=== PATIENT | female | born 2000 | race Caucasian/White ===

== ENCOUNTER → 2020-05-13 09:55 | Outpatient (BNVA) | payer BC, MEDICAID, SELFPAY | PROVIDERS: Family Provider Nurse Practitioner Family; PCP Nurse Practitioner Family; Visit Provider Obstetrics & Gynecology | DX: Z34.02 Encounter for supervision of normal first pregnancy, second trimester (principal) | CPT/HCPCS: 81000; 82950; 85027 ==

== ENCOUNTER → 2020-05-19 08:17 | Outpatient (BNVA) | payer BC, MEDICAID, SELFPAY | PROVIDERS: Family Provider Nurse Practitioner Family; PCP Nurse Practitioner Family; Visit Provider Obstetrics & Gynecology | DX: R73.09 Other abnormal glucose (principal) | CPT/HCPCS: 82951; 82952 ==

== ENCOUNTER 2020-05-24 23:27 | Outpatient (CLI) | payer BC, MEDICAID, SELFPAY ==
[2020-05-24 23:50] VITALS: PULSE 116; O2SAT 100
[2020-05-24 23:51] VITALS: BP 126/84; PULSE 120; TEMP 36.9
[2020-05-24 23:55] VITALS: PULSE 106; O2SAT 99
[2020-05-25] VITALS (24 sets, daily range): BP systolic 116–127; BP diastolic 71–87; PULSE 73–115; O2SAT 97–100; BMI 25.5
[2020-05-25] MEDS: acetaminophen 325 mg Tablet 650 MG PO (00:45)
--- NOTE | 2020-05-25 06:47 | PM.ACPR ---
Procedure/Consent Procedure Narrative: NONSTRESS TEST: Place of test: [facility]D Indication: 19-year-old 1 para 0 at 30 weeks and 1 day gestation, abdominal pain and decreased movement Date and time of test: 05/25/2020, 12:30 AM Baseline: 135 Variability: Moderate Accelerations: Accelerations present Decelerations: No decelerations Tocometry: No contractions INTERPRETATION: NST reactive, continue kick counts
== END 2020-05-25 01:45 | disposition home or self-care (01) ==
LOC: OPOB 23:35 → OBGYN 05-25 01:37
PROVIDERS: Family Provider Nurse Practitioner Family; PCP Nurse Practitioner Family; Visit Provider Obstetrics & Gynecology
DX: O36.8130 Decreased fetal movements, third trimester, not applicable or unspecified (principal); Z3A.30 30 weeks gestation of pregnancy; R10.9 Unspecified abdominal pain
CPT/HCPCS: 12345; 99211

== ENCOUNTER → 2020-05-27 15:59 | Outpatient (BNVA) | payer BC, MEDICAID, SELFPAY | PROVIDERS: Family Provider Nurse Practitioner Family; PCP Nurse Practitioner Family; Visit Provider Obstetrics & Gynecology | DX: Z34.90 Encounter for supervision of normal pregnancy, unspecified, unspecified trimester (principal) | CPT/HCPCS: 81000 ==

== ENCOUNTER → 2020-06-07 15:10 | Outpatient (BNVA) | payer BC, MEDICAID, SELFPAY | PROVIDERS: Family Provider Nurse Practitioner Family; PCP Nurse Practitioner Family; Visit Provider Obstetrics & Gynecology | DX: O09.893 Supervision of other high risk pregnancies, third trimester (principal) | CPT/HCPCS: 81000; 87077; 87086; 87184 ==

== ENCOUNTER → 2020-06-25 10:54 | Outpatient (BNVA) | payer BC, MEDICAID, SELFPAY | PROVIDERS: Family Provider Nurse Practitioner Family; PCP Nurse Practitioner Family; Visit Provider Obstetrics & Gynecology | DX: O24.410 Gestational diabetes mellitus in pregnancy, diet controlled (principal); O28.3 Abnormal ultrasonic finding on antenatal screening of mother; J45.990 Exercise induced bronchospasm | CPT/HCPCS: 81000 ==

== ENCOUNTER → 2020-07-05 10:24 | Outpatient (BNVA) | payer BC, MEDICAID, SELFPAY | PROVIDERS: Family Provider Nurse Practitioner Family; PCP Nurse Practitioner Family; Visit Provider Obstetrics & Gynecology | DX: O24.410 Gestational diabetes mellitus in pregnancy, diet controlled (principal) | CPT/HCPCS: 81000 ==

== ENCOUNTER → 2020-07-08 09:43 | Outpatient (BNVA) | payer BC, MEDICAID, SELFPAY | PROVIDERS: Family Provider Nurse Practitioner Family; PCP Nurse Practitioner Family; Visit Provider Obstetrics & Gynecology | DX: O24.410 Gestational diabetes mellitus in pregnancy, diet controlled (principal) | CPT/HCPCS: 81000 ==

== ENCOUNTER → 2020-07-12 09:19 | Outpatient (BNVA) | payer BC, MEDICAID, SELFPAY | PROVIDERS: Family Provider Nurse Practitioner Family; PCP Nurse Practitioner Family; Visit Provider Obstetrics & Gynecology | DX: O24.410 Gestational diabetes mellitus in pregnancy, diet controlled (principal) | CPT/HCPCS: 81000 ==

== ENCOUNTER 2020-12-07 10:24 | Day surgery (SDC) | payer BC, MEDICAID, SELFPAY ==
[2020-12-07] VITALS (11 sets, daily range): BP systolic 113–139; BP diastolic 60–89; PULSE 57–98; RESP 16–25; TEMP 36.3–37.2; O2SAT 94–100; BMI 22.4
--- NOTE | 2020-12-07 13:02 | W.ED.ABDPA2 ---
HPI - Abdominal Pain General: Chief Complaint: Abdominal Pain Stated Complaint: ABD Cramps N/V Time Seen by Provider: 12/07/20 12:59 History of Present Illness: HPI narrative: 19-year-old female presents to the emergency room complaint of abdominal pain. Woke her from sleep around 4 AM today she is took some Tylenol at back to sleep, she awoke and it was a little worse than it was initially. Localized pain to the right lower quadrant. She has had some nausea and vomiting but no diarrhea denies any hematemesis coffee-ground emesis no dysuria urgency or frequency. Earlier this year she was and had a . No other abdominal surgeries. MD elicited complaint: abdominal pain Onset (ago): hour(s) Pain Consistency: intermittent Location: RLQ Quality: cramping Radiation: none Exacerbating factors: movement Relieving factors: nothing Associated Symptoms: Reports GI cramping, nausea and poor appetite; Denies anorexia, belching, bloating, change in bowel habits, change in stool character, chills, coffee ground emesis, constipation, diarrhea, dyspepsia, dysuria, excessive flatus, fever(s), heartburn, hematochezia, hematuria, hematemesis, fecal incontinence, loose stools, melena, syncope and vomiting Related Data: Date of Last Menstrual Period: 11/16/20 Review of Systems Const: Denies: fever(s) or chills ENMT: Denies: throat pain, ear or mastoid pain, nasal discharge or nasal congestion Card: Denies: syncope Resp: Denies: dyspnea, productive cough or non-productive cough GI: Reports: nausea and GI cramping; Denies: vomiting, hematemesis, coffee ground emesis, heartburn, diarrhea, constipation, bloating, belching, excessive flatus, fecal incontinence, change in bowel habits, change in stool character, hematochezia or melena : Denies: dysuria or hematuria Skin/Breast: Denies: rash or pruritus PFSH ED PFSH: Medical History Exercise-induced asthma History of gestational diabetes Had GDM with first . Surgical History (Updated 12/07/20 @ 16:25 by Zach Orona MD) S/P primary low transverse (07/21/20) x 1 Dx: NR FHT. Performed at [facility] in [place], [place]. confirmed LTCS with 2 layer closure. Family History Grandfather Hypertension Maternal Mother Lupus Brother Epilepsy Social History Smoking and tobacco status: never smoked Alcohol intake: never Female Reproductive History: Date of last menstrual period: 11/16/20 Physical Exam Const: COMMON NORMALS: no acute distress GENERAL APPEARANCE: cooperative and comfortable ORIENTATION/CONSCIOUSNESS: Yes awake, Yes oriented to person, Yes oriented to place and Yes oriented to time HENMT: COMMON NORMALS: normocephalic, atraumatic and hearing grossly normal bilaterally HEAD & SCALP: normocephalic and atraumatic Neck/C-Spine: COMMON NORMALS: no JVD Resp: COMMON NORMALS: normal respiratory effort, No retractions, No use of accessory muscles and clear to auscultation bilaterally AUSCULTATION: clear to auscultation bilaterally Cardio: COMMON NORMALS: no JVD, regular rate, regular rhythm and No murmurs present (Cardio) RATE: regular rate RHYTHM: regular rhythm GI: COMMON NORMALS: No hepatosplenomegaly present AUSCULTATION: Yes normoactive bowel sounds PALPATION: Yes Tenderness to palpation present (GI) Details: RLQ, No Guarding due to palpation present (GI) and Yes No hepatosplenomegaly present Extremity: COMMON NORMALS: normal to inspection, capillary refill normal, no clubbing, cyanosis or edema, no calf tenderness and no pedal edema Neuro: SENSORIUM/ORIENTATION: Yes oriented to person, Yes oriented to place and Yes oriented to time Skin: COMMON NORMALS: no rashes or lesions noted GENERAL SKIN EXAM: no rashes or lesions noted Course Vital Signs: Vital signs: Vital Signs Temperature 97.7 F 12/07/20 20:45 Pulse Rate 64 12/07/20 20:47 Respiratory Rate 18 12/07/20 20:47 Blood Pressure 134/85 12/07/20 20:47 Pulse Oximetry 94 12/07/20 20:47 MDM - Abdominal Pain MDM Narrative: Medical decision making narrative: CT shows acute appendicitis. Discussed Dr. jefferson take patient directly to surgery. Lab Data: Labs: Lab Results 12/07/20 12/07/20 12/07/20 Range/Units 13:05 13:05 13:05 WBC 15.5 H (4.5-13.0) 10^3/ uL RBC 4.87 (4.1-5.3) 10^6/u L Hgb 12.9 (11.5-15.3) g/dL Hct 40.3 (37.0-47.0) % MCV 82.8 (81-99) fL MCH 26.5 L (28.0-34.0) pg MCHC 32.0 (30.0-36.0) g/dL RDW 13.3 (12.1-15.1) % Plt Count 308 (130-400) 10^3/c mm MPV 9.8 (7.4-10.4) fL Neut % (Auto) 86.4 % Lymph % (Auto) 8.9 % [place] % (Auto) 4.0 % Eos % (Auto) 0.1 % Baso % (Auto) 0.3 % Neut # (Auto) 13.37 H (1.8-8.0) 10^3/u L Lymph # (Auto) 1.4 L (1.5-6.5) 10^3/u L [place] # (Auto) 0.6 (0.2-0.9) 10^3/u L Eos # (Auto) 0.0 (0.0-0.8) 10^3/u L Baso # (Auto) 0.0 (0.0-0.1) 10^3/u L Nucleated RBC % (a uto) 0 % Nucleated RBCs # 0.0 /100WBC Sodium 138 (136-145) mmol/L Potassium 4.5 (3.5-5.1) mmol/L Chloride 103 (98-107) mmol/L Carbon Dioxide 23 (22-29) mmol/L Anion Gap 16.5 (5-19) BUN 10 (6-20) mg/dL Creatinine 0.8 (0.5-0.9) mg/dL GFR Calculation 92.4 (90-130) mL/min Glucose 92 (65-115) mg/dL Calculated Osmolal ity 285 (285-295) mOsm/k g Calcium 9.4 (8.5-10.5) mg/dL Total Bilirubin 0.3 (0.15-1.2) mg/dL AST 19 (0-32) U/L ALT 12 (0-33) U/L Alkaline Phosphata se 130 H (35-105) IU/L Total Protein 7.3 (6.6-8.7) g/dL Albumin 4.4 (3.5-5.2) g/dL Globulin 2.9 (1.3-4.6) g/dL Lipase 31 (13-60) U/L HCG, Qual Negative (Negative) Urine Color (Yellow) Urine Appearance (CLEAR) Urine pH (5-7) Ur Specific Gravit y (1.005-1.030) Urine Protein (Negative) Urine Glucose (UA) (Normal) Urine Ketones (Negative) Urine Blood (Negative) Urine Nitrate (Negative) Urine Bilirubin (Negative) Urine Urobilinogen (Negative) mg/dL Ur Leukocyte [place]esh[place] ase (Negative) Urine RBC (0-2) /hpf Urine WBC (0-5) /hpf Ur Squamous Epith Cells (0-5) /hpf Amorphous Sediment Urine Bacteria (NONE) /hpf 12/07/20 Range/Units 13:05 WBC (4.5-13.0) 10^3/ uL RBC (4.1-5.3) 10^6/u L Hgb (11.5-15.3) g/dL Hct (37.0-47.0) % MCV (81-99) fL MCH (28.0-34.0) pg MCHC (30.0-36.0) g/dL RDW (12.1-15.1) % Plt Count (130-400) 10^3/c mm MPV (7.4-10.4) fL Neut % (Auto) % Lymph % (Auto) % [place] % (Auto) % Eos % (Auto) % Baso % (Auto) % Neut # (Auto) (1.8-8.0) 10^3/u L Lymph # (Auto) (1.5-6.5) 10^3/u L [place] # (Auto) (0.2-0.9) 10^3/u L Eos # (Auto) (0.0-0.8) 10^3/u L Baso # (Auto) (0.0-0.1) 10^3/u L Nucleated RBC % (a uto) % Nucleated RBCs # /100WBC Sodium (136-145) mmol/L Potassium (3.5-5.1) mmol/L Chloride (98-107) mmol/L Carbon Dioxide (22-29) mmol/L Anion Gap (5-19) BUN (6-20) mg/dL Creatinine (0.5-0.9) mg/dL GFR Calculation (90-130) mL/min Glucose (65-115) mg/dL Calculated Osmolal ity (285-295) mOsm/k g Calcium (8.5-10.5) mg/dL Total Bilirubin (0.15-1.2) mg/dL AST (0-32) U/L ALT (0-33) U/L Alkaline Phosphata se (35-105) IU/L Total Protein (6.6-8.7) g/dL Albumin (3.5-5.2) g/dL Globulin (1.3-4.6) g/dL Lipase (13-60) U/L HCG, Qual (Negative) Urine Color Yellow (Yellow) Urine Appearance Hazy A (CLEAR) Urine pH 5 (5-7) Ur Specific Gravit y 1.020 (1.005-1.030) Urine Protein Neg (Negative) Urine Glucose (UA) Norm (Normal) Urine Ketones Negative (Negative) Urine Blood Neg (Negative) Urine Nitrate Negative (Negative) Urine Bilirubin Neg (Negative) Urine Urobilinogen Norm (Negative) mg/dL Ur Leukocyte [place] ase Negative (Negative) Urine RBC 5-10 H (0-2) /hpf Urine WBC 0-4 H (0-5) /hpf Ur Squamous Epith Cells 15-25 H (0-5) /hpf Amorphous Sediment Not Reportable Urine Bacteria 4+ H (NONE) /hpf Discharge Plan Discharge Patient Disposition: Admitted As Inpatient Clinical Impression: Acute appendicitis Condition: Stable Discharge Diet: Advance as tolerated Discharge Activity: Limit activity as instructed Coding Level of Care Code ED Tangled Yarn Worker for Amanuel Fwd Exam Comprehensive
--- NOTE | 2020-12-07 13:11 | CT_ITS ---
WS: [id number] CT ABDOMEN AND PELVIS WITH CONTRAST HISTORY: General abdominal pain with nausea and vomiting. TECHNIQUE: Imaging performed of the abdomen and pelvis with IV contrast. Single phase imaging of the abdomen. Coronal and sagittal reformats are submitted. All CT scans at [facility] use at least one of these dose optimization techniques: automated exposure control; mA and/or kV adjustment per patient size (includes targeted exams where dose is matched to clinical indication); or iterativ e reconstruction. IV CONTRAST: Omnipaque 300; 75 mL IV. Oral contrast: No DLP: 798.25 mGy.cm COMPARISON: None available. Lower thorax: Lung bases are clear. Heart is normal size. No hiatal hernia. Liver/biliary system: Normal size with no intrahepatic dilatation. Gallbladder: Normal. No gallstones or wall thickening. No pericholecystic fluid. Pancreas: Normal size pancreas and pancreatic duct. No adjacent inflammation. Spleen: Normal size spleen. No mass or infarct. Adrenal glands: Normal. Right kidney: Normal. Left kidney: Normal. Aorta: Normal. Lymphadenopathy: None. Free fluid: Small to moderate amount of free fluid in the cul-de-sac. Slightly more than physiologic. GI tract: There is a dilated elongated fluid-filled blind-ending loop extends across the midline of t he pelvis from the RIGHT lower quadrant measuring 8 mm. Highly suspicious for an abnormal appendix. M ild enhancement of the wall. No additional appendix is identified. Abdominal wall: Unremarkable abdominal wall. No hernia. Pelvis: Free fluid in the pelvis. Uterus is retroverted. Small amount of fluid along the endometrial canal. There is also some very mild inflammatory changes in the pelvis. Ovaries contain small follicl es. Bones: Unremarkable. CT/CT abdomen pelvis w con* [id number] IMPRESSION: 1. Dilated blind-ending loop extending across the midline of the pelvis highly suspicious for appendicitis. 2. Small amount of free fluid in the pelvis is slightly more than physiologic.
[2020-12-07 13:17] LABS: Basophils % 0.3 %; Eosinophils % 0.1 %; Hematocrit 40.3 % (37.0-47.0); Hemoglobin 12.9 g/dL (11.5-15.3); Lymphocytes # 1.4 10^3/uL (1.5-6.5); Lymphocytes % 8.9 %; Mean Corpuscular Hemoglobin 26.5 pg (28.0-34.0); Mean Corpuscular Volume 82.8 fL (81-99); Mean Platelet Volume 9.8 fL (7.4-10.4); Monocytes # 0.6 10^3/uL (0.2-0.9); Neutrophils # 13.37 10^3/uL (1.8-8.0); Neutrophils % 86.4 %; Nucleated Red Blood Cells % 0 %; Platelet Count 308 10^3/cmm (130-400); Red Blood Count 4.87 10^6/uL (4.1-5.3); Red Cell Distribution Width 13.3 % (12.1-15.1); White Blood Count 15.5 10^3/uL (4.5-13.0)
[2020-12-07 13:31] LABS: HCG, Serum Qual Negative (Negative)
[2020-12-07 13:37] LABS: Alanine Aminotransferase 12 U/L (0-33); Albumin Level 4.4 g/dL (3.5-5.2); Alkaline Phosphatase 130 IU/L (35-105); Anion Gap 16.5 (5-19); Aspartate Amino Transferase 19 U/L (0-32); Blood Urea Nitrogen 10 mg/dL (6-20); Calcium 9.4 mg/dL (8.5-10.5); Carbon Dioxide 23 mmol/L (22-29); Chloride 103 mmol/L (98-107); Globulin 2.9 g/dL (1.3-4.6); Glomerular Filtration Rate 92.4 mL/min (90-130); Glucose 92 mg/dL (65-115); Lipase 31 U/L (13-60); Osmolality Calculated 285 mOsm/kg (285-295); Potassium 4.5 mmol/L (3.5-5.1); Sodium 138 mmol/L (136-145); Total Bilirubin 0.3 mg/dL (0.15-1.2); Total Protein 7.3 g/dL (6.6-8.7)
[2020-12-07] MEDS: iohexol 300 mg/mL 100 mL Btl IV (13:41)
[2020-12-07 14:16] LABS: Bilirubin Urine Neg (Negative); Blood Urine Neg (Negative); Glucose Urine UA Norm (Normal); Ketones Urine Negative (Negative); Leukocyte Esterase Urine Negative (Negative); Nitrate Urine Negative (Negative); Protein Urine Neg (Negative); Urine Appearance Hazy (CLEAR); Urine Color Yellow (Yellow); Urobilinogen Urine Norm (Negative); pH Urine 5 (5-7)
[2020-12-07 14:17] LABS: Squamous Epithelial Cell Urine 15-25 /hpf (0-5); WBC Urine 0-4 /hpf (0-5)
[2020-12-07 14:18] LABS: Add Urine Culture? No
[2020-12-07 14:19] LABS: Bacteria Urine 4+ /hpf
--- NOTE | 2020-12-07 14:46 | ANES.PREANE2 ---
Pre-Anesthetic Assessment Pre-Anesthetic Assessment: Height/Weight: Height 1.52 m Weight 52.163 kg Temp Pulse Resp BP Pulse Ox 98.0 F 57 L 18 120/60 100 12/07/20 11:56 12/07/20 13:32 12/07/20 14:02 12/07/20 14:02 12/07/20 14:02 Preop Diagnosis: appendicitis Proposed Procedure: appendectomy Familial anesthetic complications: Mother's heart stopped after losing 2 L blood and getting morphine during back surgery Was Beta Jackeline taken within 24 hours: N/A Was Clonidine taken within 24 hours: N/A Last intake: . 8 hrs Social: Social History: No alcohol and No tobacco Exam: Pre-Anes Outpt Exam: alert, oriented x 3, clear to auscultation bilaterally and regular rate & rhythm Airway: Cervical ROM: WNL MP: 1 Dentition: Chipped Anesthetic Plan: ASA status: 1 Anesthesia: General Risk of > 500 ml blood loss (7ml/kg in children): No PFSH Anesthesia PFSH: Medical History Exercise-induced asthma History of gestational diabetes Had GDM with first . Surgical History S/P primary low transverse (07/21/20) Dx: NR FHT. Performed at [facility] in [place], [place]. confirmed LTCS with 2 layer closure. Family History Grandfather Hypertension Maternal Mother Lupus Brother Epilepsy Social History Smoking and tobacco status: never smoked Alcohol intake: never Female Reproductive History: Date of last menstrual period: 11/16/20 Data Anesthesia CBC & Chem 7: 12/07/20 13:05 12/07/20 13:05 Other Labs: Laboratory Results - last 48 hr 12/07/20 12/07/20 12/07/20 13:05 13:05 13:05 WBC 15.5 H RBC 4.87 Hgb 12.9 Hct 40.3 MCV 82.8 MCH 26.5 L MCHC 32.0 RDW 13.3 Plt Count 308 MPV 9.8 Neut % (Auto) 86.4 Lymph % (Auto) 8.9 [place] % (Auto) 4.0 Eos % (Auto) 0.1 Baso % (Auto) 0.3 Neut # (Auto) 13.37 H Lymph # (Auto) 1.4 L [place] # (Auto) 0.6 Eos # (Auto) 0.0 Baso # (Auto) 0.0 Nucleated RBC % (auto) 0 Nucleated RBCs # 0.0 Sodium 138 Potassium 4.5 Chloride 103 Carbon Dioxide 23 Anion Gap 16.5 BUN 10 Creatinine 0.8 GFR Calculation 92.4 Glucose 92 Calculated Osmolality 285 Calcium 9.4 Total Bilirubin 0.3 AST 19 ALT 12 Alkaline Phosphatase 130 H Total Protein 7.3 Albumin 4.4 Globulin 2.9 Lipase 31 HCG, Qual Negative Urine Color Urine Appearance Urine pH Ur Specific [place] Urine Protein Urine Glucose (UA) Urine Ketones Urine Blood Urine Nitrate Urine Bilirubin Urine Urobilinogen Ur Leukocyte Esterase Urine RBC Urine WBC Ur Squamous Epith Cells Amorphous Sediment Urine Bacteria 12/07/20 13:05 WBC RBC Hgb Hct MCV MCH MCHC RDW Plt Count MPV Neut % (Auto) Lymph % (Auto) [place] % (Auto) Eos % (Auto) Baso % (Auto) Neut # (Auto) Lymph # (Auto) [place] # (Auto) Eos # (Auto) Baso # (Auto) Nucleated RBC % (auto) Nucleated RBCs # Sodium Potassium Chloride Carbon Dioxide Anion Gap BUN Creatinine GFR Calculation Glucose Calculated Osmolality Calcium Total Bilirubin AST ALT Alkaline Phosphatase Total Protein Albumin Globulin Lipase HCG, Qual Urine Color Yellow Urine Appearance Hazy A Urine pH 5 Ur Specific [place] 1.020 Urine Protein Neg Urine Glucose (UA) Norm Urine Ketones Negative Urine Blood Neg Urine Nitrate Negative Urine Bilirubin Neg Urine Urobilinogen Norm Ur Leukocyte Esterase Negative Urine RBC 5-10 H Urine WBC 0-4 H Ur Squamous Epith Cells 15-25 H Amorphous Sediment Not Reportable Urine Bacteria 4+ H Cardiac Studies: No Data to Display
--- NOTE | 2020-12-07 16:23 | PM.HP ---
Providers/Chief Complaint Admitting Physician: General Surgery Zach Orona MD Primary Care Provider: Mirta House Chief Complaint: ABD Cramps N/V History of Present Illness Laura Edwards is a 19 year old female who says she awoke around 4 AM this morning with some lower abdominal pain. It got bad enough that she became somewhat dizzy and felt like she was going to pass out at one point in time due to the pain. Over the course of the day, the pain has moved and become a little bit more noticeable in the right lower quadrant. She has not had any fevers or chills but did develop some nausea and vomited once. She ended up coming to the emergency department where a CAT scan showed changes very suspicious for acute appendicitis. Review of Systems General: Reports: 10 or more systems reviewed and unremarkable except in HPI and below Const: Denies: fever(s) GI: Reports: abdominal pain, nausea and vomiting; Denies: change in bowel habits Medications/Allergies Home Medications Medication Instructions Recorded Confirmed Last Taken Type prenat.vits,yuliana,yxs-rvea-breuz 1 tab PO DAILY 04/07/20 08/30/20 Unknown History ferrous sulfate 325 mg (65 mg 325 mg PO DAILY #30 tab 05/18/20 08/30/20 Unknown Rx iron) tablet norethindrone (contraceptive) 0.35 0.35 mg PO DAILY #28 tab 08/30/20 08/30/20 Unknown Rx mg tablet Allergies Allergy/AdvReac Type Severity Reaction Status Date / Time clindamycin Allergy Rash Verified 08/30/20 10:05 sulfamethoxazole Allergy Rash Verified 08/30/20 10:05 [From Bactrim] trimethoprim [From Bactrim] Allergy Rash Verified 08/30/20 10:05 PFSH Acute PFSH: Medical History Exercise-induced asthma History of gestational diabetes Had GDM with first . Surgical History (Updated 12/07/20 @ 16:25 by Zach Orona MD) S/P primary low transverse (07/21/20) x 1 Dx: NR FHT. Performed at [facility] in [place], [place]. confirmed LTCS with 2 layer closure. Family History Grandfather Hypertension Maternal Mother Lupus Brother Epilepsy Social History Smoking and tobacco status: never smoked Alcohol intake: never Female Reproductive History: Date of last menstrual period: 11/16/20 Vitals/I&O/Wt Last Vital Signs Temp 98.9 F 12/07/20 16:06 Pulse 62 12/07/20 16:06 Resp 18 12/07/20 16:06 BP 113/73 12/07/20 16:06 Pulse Ox 98 12/07/20 16:06 Weight last 48 hrs Weight 115 lb Physical Exam Narrative: EXAM NARRATIVE: The patient was encountered in her room in the outpatient surgery department after being moved from the emergency department. She does not appear to be in any distress. The pupils are equal. No carotid bruits are heard. The lungs are clear. The heart is regular. The abdomen reveals some bowel sounds and is soft but the patient does have her maximum point of tenderness over McBurney's point in the right lower quadrant with positive percussion tenderness. Rovsing's sign is equivocal. No obvious masses are palpated. The extremities reveal no edema. Neurologically the patient is grossly intact. Data : 12/07/20 13:05 12/07/20 13:05 CT Abd/Pel: Radiologist's impression: CT abdomen/pelvis 12/07/2020 IMPRESSION: 1. Dilated blind-ending loop extending across the midline of the pelvis highly suspicious for appendicitis. 2. Small amount of free fluid in the pelvis is slightly more than physiologic. A&P Assessment and plan (1) Acute appendicitis: The patient's exam is very consistent with acute appendicitis. I agree with the findings on the CAT scan; it is difficult to know if what we are seeing is the appendix with any certainty, but it appears to end blindly on the left side of the pelvis and travels over to near the base of the cecum on the right side. I discussed treatment of appendicitis with the patient in detail. We discussed both medical and surgical methods of management. Surgical risks including bleeding, infection, internal organ injury, etc. were all gone over. We also discussed laparoscopic and open techniques of surgery. The patient seems to understand and would like to proceed with an appendectomy today. She has not had anything solid to eat since last night. Status: Acute Attestations Medical Necessity Statement*: The patient may go home after surgery today if there are no contraindications. For that reason, she will be left in outpatient status for now. Coding Level of Care Code Acute Lubricating Engineer for Amanuel Montez Diagnoses Acute appendicitis K35.80
[2020-12-07] MEDS: lactated ringers 1,000 ML 100 ML IV (17:30)
[2020-12-07] MEDS: metroNIDAZOLE IV 250 MG in empty flexible container 1 EACH 50 MG IV (19:45)
--- NOTE | 2020-12-07 20:15 | P.OP_ITS ---
Operative Report Date of procedure: December 07, 2020 Pre-op Diagnosis: Acute appendicitis. Post-op diagnosis: same Procedure Done: Laparoscopic appendectomy. Specimens removed/disposition: Appendix. Surgeon: Zach Orona Anesthesia: General Estimated blood loss (mL): 2 Complications: None. Condition: stable Disposition: PACU Procedure: The patient was brought to the Operating Room and was placed in a supine position on the operating room table. General endotracheal anesthesia was induced. The abdomen was prepped and draped in a sterile fashion. A small vertical incision was carried out in the inferior aspect of the umbilicus. Blunt dissection was carried out down to the fascia, which was grasped with a Jaqueline clamp. A stay suture of 0 Vicryl was placed on either side of the midline and the midline fascia was incised. The underlying peritoneum was opened bluntly and the Sherie port was placed directly into the peritoneal cavity and was held in place with the inflatable balloon. The peritoneal cavity was insufflated with carbon dioxide. The laparoscope was used to inspect the peritoneal cavity. No gross abnormalities were initially noted other than a small omental adhesion to the lower midline which was eventually taken down. Two 5-millimeter ports were placed in the left lower quadrant under direct vision. The patient was tilted in a Trendelenburg position and slightly to the left side. A laparoscopic [employer] was used to elevate the cecum and the appendix was identified. The appendix was somewhat dilated and had some injected blood vessels on its surface. The mesoappendix was edematous. No evidence of perforation was present. The appendix was then elevated. The mesoappendix was divided using cautery to maintain hemostasis at the base of the appendix. The base of the appendix appeared healthy and was divided using an endoscopic stapler. The appendix was removed from the peritoneal cavity after being placed in a laparoscopic bag. The right lower quadrant and pelvis were irrigated. The staple line on the cecum was identified and appeared to be in good condition. The Sherie port was removed from the umbilical site and the stay sutures of Vicryl were tied to each other at the umbilicus. An additional [id number] suture of 0 Vicryl was placed, closing the fascial defect so that it was airtight. A final round of irrigation was carried out in the right lower quadrant and the pelvis. No ongoing problems were seen. The remaining ports were removed from the abdominal wall as the pneumoperitoneum was evacuated. All skin incisions were closed using inverted interrupted sutures of 4-0 Vicryl. Benzoin and Steri-Strips were placed over the incisions and Band- Aids followed. The patient was taken to the Recovery Room in stable condition postoperatively.
--- NOTE | 2020-12-07 21:23 | SUR.PHASEII ---
2120: patient dispensed #4 hydrocodone/apap 5/325mg to take at home for overnight. patients post op RX was sent to [facility] and they closed at 1900. patient can pickup RX 12/08. all other pharmacies in [facility] are closed at 2000.
[2020-12-07] MEDS: HYDROcodone-acetaminophen 5-325 mg Tablet 4 TAB PO (21:25)
--- NOTE | 2020-12-07 21:27 | ANE.PACU2 ---
Inpatient post-anesthesia follow up: Airway intact: Yes Vital signs: Temperature 97.7 F Pulse Rate [Monito r] 70 Pulse Rate 64 Respiratory Rate 18 Blood Pressure [Ri ght Arm] 115/69 Blood Pressure 134/85 Pulse Oximetry 94 Oxygen Delivery Me thod Room Air Oxygen Flow Rate Fraction of Inspir ed Oxygen Hydration adequate: Yes Nausea and vomiting: No Pain level: 2 Mental status: Baseline
== END 2020-12-07 21:31 | disposition home or self-care (01) ==
LOC: ER 15:11 → OPS 15:37
PROVIDERS: Physician Assistant; Emergency Provider Family Medicine; PCP Nurse Practitioner Family; Visit Provider Surgery
PROC: 0DTJ4ZZ Resection of Appendix, Percutaneous Endoscopic Approach (ICD-10-PCS; CPT 44970; principal; 2020-12-07 18:55)
DX: K35.80 Unspecified acute appendicitis (principal)
CPT/HCPCS: 44970; 74177; 80053; 81001; 83690; 84703; 85025; 88304; 96361; 96365; 96375; J0690; J1100; J2405; J2704; J2710; J3010; J3490; Q9967; S0030

== ENCOUNTER 2022-11-16 01:10 | Emergency (ER) | payer BC, MEDICAID, SELFPAY ==
[2022-11-16 01:22] VITALS: BP 133/93; PULSE 82; RESP 16; TEMP 37.4; O2SAT 99; BMI 23.4
--- NOTE | 2022-11-16 01:22 | ED_ITS ---
HPI - Extremity Injury (Lower) General: Chief Complaint: Extremity Problem,Nontraumatic Stated Complaint: left foot injury / toe Time Seen by Provider: 11/16/22 01:22 History of Present Illness: Patient comes in due to pain and tenderness to the left great toe. Patient appears nontoxic. Patient appears no acute distress. Patient reports not injuring the foot. Patient reports symptoms for the last 2 to 3 days. Review of Systems General: Reports: 10 or more systems reviewed and unremarkable except in HPI and below Musc: Reports: extremity pain and extremity swelling Skin/Breast: Reports: erythema PFSH ED PFSH: Medical History Exercise-induced asthma History of gestational diabetes Had GDM with first . Surgical History S/P primary low transverse (07/21/20) x 1 Dx: NR FHT. Performed at [facility] in [place], [place]. confirmed LTCS with 2 layer closure. Family History Grandfather Hypertension Maternal Mother Lupus Brother Epilepsy Social History Smoking and tobacco status: never smoked Alcohol intake: never Substance/Drug Use: never Physical Exam Const: COMMON NORMALS: alert HENMT: COMMON NORMALS: normocephalic HEAD & SCALP: normocephalic Neck/C-Spine: COMMON NORMALS: full ROM Resp: COMMON NORMALS: normal respiratory effort Cardio: COMMON NORMALS: regular rate RATE: regular rate Extremity: COMMON NORMALS: normal to inspection RIGHT LOWER EXTREMITY: Yes foot & digits (Redness to the medial aspect of the great toe) Neuro: SENSORIUM/ORIENTATION: Yes alert Skin: NAILS: other (Mild ingrown nail left great toe) Course Vital Signs: Vital signs: Vital Signs Temperature 99.4 F 11/16/22 01:22 Pulse Rate 82 11/16/22 01:22 Respiratory Rate 16 11/16/22 01:22 Blood Pressure 133/93 11/16/22 01:22 Pulse Oximetry 99 11/16/22 01:22 Oxygen Delivery Me thod Room Air 07/13/23 01:22 MDM - Extremity Injury (Lower) Medical Decision Making 21-year-old female comes in with a tenderness and redness to the left great toe. On exam patient has a mild ingrown toenail with some mild swelling and redness to the medial aspect of the great toe. Cap refill is intact. Differential diagnoses includes ingrown toenail, paronychia, subungual hematoma, cellulitis. Patient appears to have an ingrown nail with some mild paronychia. We will treat paronychia with Augmentin 1 tablet twice a day for 7 days. Patient was given 1 dose here. Reviewed recommendations for treatment of a mild ingrown nail with working the outer edge of the nail away from the skin and filing the center of the nail. Recommend follow-up with purchasing contracting clerk for further evaluation and treatment as needed. Patient agreed to plan and reported understanding. Discharge Plan Discharge Patient Disposition: Home Clinical Impression: Paronychia due to ingrown nail Condition: Stable Prescriptions: New amoxicillin-pot clavulanate 875-125 mg tablet 1 tab PO BID Qty: 13 0RF No Action prenat.vits,yuliana,wjo-nljn-nbvvu Tablet 1 tab PO DAILY norethindrone (contraceptive) [Kimberly] 0.35 mg tablet 0.35 mg PO DAILY Qty: 28 12RF ferrous sulfate 325 mg (65 mg iron) tablet 325 mg PO DAILY Qty: 30 4RF hydrocodone-acetaminophen 5-325 mg tablet 1 - 2 tab PO Q5H PRN (Reason: pain) Qty: 30 0RF Discharge Orders: Discharge ED (Routine); Ordered 11/16/22 Ordered By: Bakari Orona Referrals: Mirta House FNP [Primary Care Provider] - Discharge Diet: Usual diet Discharge Activity: Increase activity as tolerated Patient Instructions: Ingrown Nail (ED) Activity Restrictions/Additional Instructions: Gently file the nail in the center of the nail to help pull the outer edges of the nail away from the skin. Use of file to gently lift the nail away from the outer edges to help the nail not grow into the skin. Apply some Polysporin mniw-atd-kkyrzdt antibacterial ointment to the wound twice a day. Take oral antibiotic as directed. Avoid shoes which are tight and put pressure on the toes. Follow-up with purchasing contracting clerk for further recommendations and treatment. Return to ER for new concerns. Coding Level of Care Code ED Contract Admin for Amanuel Montez
[2022-11-16 01:26] VITALS: PULSE 88; RESP 14
[2022-11-16] MEDS: bacitracin ointment Pkt 1 EACH TOPICAL (01:44)
[2022-11-16] MEDS: amoxicillin-clav 875-125 mg Tablet 1 TAB PO (01:44)
[2022-11-16 02:03] VITALS: PULSE 79; RESP 14; O2SAT 99
--- NOTE | 2022-11-16 10:05 | DCPLANNER ---
Addendum entered by Alyson Bhatia 11/20/22 16:09: hotel operation manager received the following message from the ortho clinic regarding follow up appointment: Left vm for pt to call back and schedule. would like to see her 11/17/22 end of day Original Note: hotel operation manager had message to schedule a follow up appointment for patient with podiatry. hotel operation manager sent patients information to the front office staff at podiatry. Patients information will be printed and reviewed. Clinic will call patient with appointment information.
== END 2022-11-16 01:48 | disposition home or self-care (01) ==
PROVIDERS: Emergency Provider Nurse Practitioner Family; PCP Nurse Practitioner Family
DX: L03.032 Cellulitis of left toe (principal); L60.0 Ingrowing nail
CPT/HCPCS: 99283

== ENCOUNTER 2023-08-10 23:49 | Emergency (ER) | payer OTHER, SELFPAY ==
[2023-08-11 00:08] VITALS: BP 121/83; PULSE 83; RESP 16; TEMP 36.6; O2SAT 99; BMI 21.7
--- NOTE | 2023-08-11 00:39 | ED_ITS ---
HPI - Neuro Symptoms/Deficit 2 General: Chief Complaint: Neuro Symptoms/Deficit Stated Complaint: Face,Mouth Tingling Radiating down Rt Side Time Seen by Provider: 08/11/23 00:21 Source: patient Mode of arrival: ambulatory Limitations: no limitations History of Present Illness: 22yo female presents with friend for wilber luation of numbness and tingling to the left side of her body. Patient reports that she started with a headache at approximately 2044. States that the numbness and tingling started a little later at approximately 2114. She reports she still does have some tingling to the left fingers as well as to the left toes. She reports that she does still have her headache as well and describes it as being all over with her teeth hurting as well. States her vision is a little off as well, but better than it was earlier. She reports that she did not take any medications for the headache. Patient denies recent illness, cough, congestion, fever, fall, trauma, injury, known medical problems, possibility of , recreational drug use, neck pain, back pain, vomiting, diarrhea Associated symptoms: Reports headache(s); Deny chest pain, nausea or vomiting Review of Systems 2 Const: Denies: fever(s), chills or body aches Card: Denies: chest pain Resp: Denies: dyspnea GI: Denies: abdominal pain, nausea, vomiting or diarrhea : Denies: difficulty voiding or dysuria Musc: Denies: neck pain or back pain Skin/Breast: Denies: rash Neuro: Reports: headache(s) and numbness in extremities (tingling); Denies: difficulty walking, dizziness or confusion PFSH ED 2 PFSH: Medical History (Updated 08/11/23 @ 01:47 by KENTON Timmons) Psychiatric care History of gestational diabetes Had GDM with first . Exercise-induced asthma Surgical History S/P primary low transverse (07/21/20) x 1 Dx: NR FHT. Performed at [facility] in [place], [place]. confirmed LTCS with 2 layer closure. Family History Grandfather Hypertension Maternal Mother Lupus Brother Epilepsy Social History Smoking and tobacco/nicotine status: never used tobacco/nicotine Alcohol intake: never Substance/Drug Use: never Female Reproductive History: Date of last menstrual period: 07/21/23 NIH stroke score 2 NIHSS: Level Of Consciousness - 1a: 0 Level Of Consciousness Questions - 1b: Both Correct Level Of Consciousness Commands - 1c: Both Correct Best Gaze - 2: Normal Visual [place] - 3: No Visual Loss Facial Palsy - 4: N ormal Motor Arm Right - 5: No Drift Motor Arm Left - 5: No Drift Motor Leg Right - 6: No Drift Motor Leg Left - 6: No Drift Limb Ataxia - 7: A bsent Sensory - 8: Normal Best Language - 9: No Aphasia Dysarthia - 10: Normal Extinction And Inattention - 11: 0 Score: Total Score: 0 Physical Exam 2 Const: COMMON NORMALS: no acute distress and patient oriented x3 EXAM LIMITATIONS: no altered mental status GENERAL APPEARANCE: cooperative O RIENTATION/CONSCIOUSNESS: Yes awake OTHER: Patient is sitting upright on stretcher no acute distress. She is able to give history with no difficulty. She is interactive with exam appropriately. She is able to follow directions with no difficulty. Friend is at bedside HENMT: COMMON NORMALS: normocephalic and Normal external nose present HEAD & SCALP: normocephalic NOSE: Normal external nose present MOUTH: Normal oral and palatal mucosa present Eye: COMMON NORMALS: Equal, round and reactive pupils present, EOMs intact bilaterally and conjunctivae normal GENERAL EYE: appearance normal, both eyes and all related structures CONJUNCTIVA: Yes conjunctivae normal PUPIL: Yes Equal, round and reactive pupils present Neck/C-Spine: COMMON NORMALS: full ROM CERVICAL SPINE: Yes cervical ROM normal and No Cervical spine tenderness Chest: CHEST: Yes Symmetrical chest wall rise Resp: COMMON NORMALS: normal respiratory effort and clear to auscultation bilaterally EFFORT & INSPECTION: Yes able to speak in complete sentences A USCULTATION: clear to auscultation bilaterally Cardio: COMMON NORMALS: regular rate and regular rhythm RATE: regular rate RHYTHM: regular rhythm Extremity: COMMON NORMALS: full ROM and capillary refill normal Neuro: WILLIAM COMA SCALE: document GCS findings William coma scale eye opening: Spontaneous [place] coma scale verbal response: Orientated William coma scale motor response: Obey commands William coma scale total score: 15 COMMON NORMALS: patient oriented x3, CN's II-XII intact bilaterally, moves all extremities, no focal motor deficits, no sensory deficits noted and gait normal Psych: COMMON NORMALS: cooperative ATTITUDE: Yes calm Course 2 Vital Signs: Vital signs: Vital Signs Temperature 97.8 F 08/11/23 00:08 Pulse Rate 73 08/11/23 01:09 Respiratory Rate 16 08/11/23 01:09 Blood Pressure 113/79 08/11/23 01:09 Pulse Oximetry 99 08/11/23 00:08 Oxygen Delivery Me thod Room Air 08/11/23 01:09 MDM - Neuro Symptoms/Deficit Medical Decision Making 22yo female here with friend for evaluation of headache that started at approximately 2044 but then progressed into numbness/tingling of the left side of her face and body that started approximately 20 to 30 minutes later. Patient reports that she did have blurry vision which has improved some. She reports she now has tingling to the left fingers and left toes. Patient did not take any medications for headache prior to arrival. She denies any known medical problems. Patient also denies fall, trauma, known injury, recent illness, fever, chills, bodies, vomiting, diarrhea, recreational drug use, any new medications, new aoml-dgm-oypoakb medications, any other concerns at this time. Patient is nontoxic in appearance. Vital signs are stable. Differential diagnoses include but are not limited to: Complex headache, electrolyte abnormality, diabetes mellitus, TIA, CVA, peripheral neuropathy, MS CBC and CMP are grossly unremarkable. Patient was unable to provide a urine sample while in the emergency department. Patient did report that her headache did improve after 500 mL normal saline bolus, metoclopramide, diphenhydramine, and ketorolac. She reported that she was still having a little bit of tingling in her left hand. Patient reports that she has definitely improved. Discussed with patient that we do not have a specific reason as to all of her symptoms, but it is potentially related to the headache. Recommend she continue to monitor her symptoms closely. Recommend she follow-up with primary care, call Sunday with an update of symptoms and to discuss recheck. Advised to return to the emergency department if any rapid worsening symptoms and as needed. Patient states understanding has no further questions or concerns at this time. Medical Records I reviewed the patient's medical records. Lab Data I reviewed the patient's lab results. 08/11/23 00:53 08/11/23 00:53 Laboratory Results WBC 10.49 10^3/uL (3.29-11.43) 08/11/23 00:53 RBC 4.57 10^6/uL (3.85-5.65) 08/11/23 00:53 Hgb 12.70 g/dL (11.27-16.99) 08/11/23 00:53 Hct 38.9 % (36-47) 08/11/23 00:53 MCV 85.1 fl (85-98) 08/11/23 00:53 MCH 27.8 pg (27-33) 08/11/23 00:53 MCHC 32.6 g/dL (30-55) 08/11/23 00:53 RDW 14.0 % (12.1-15.1) 08/11/23 00:53 Plt Count 305 10^3/cmm (157-399) 08/11/23 00:53 MPV 9.1 fL (7.4-10.4) 08/11/23 00:53 Neut % (Auto) 58.9 % 08/11/23 00:53 Lymph % (Auto) 32.5 % 08/11/23 00:53 [place] % (Auto) 7.1 % 08/11/23 00:53 Eos % (Auto) 1.0 % 08/11/23 00:53 Baso % (Auto) 0.3 % 08/11/23 00:53 Neut # (Auto) 6.18 10^3/uL (1.8-7.7) 08/11/23 00:53 Lymph # (Auto) 3.4 10^3/uL (0.8-4.8) 08/11/23 00:53 [place]et # (Auto) 0.7 10^3/uL (0.2-0.9) 08/11/23 00:53 Eos # (Auto) 0.1 10^3/uL (0.0-0.8) 08/11/23 00:53 Baso # (Auto) 0.0 10^3/uL (0.0-0.1) 08/11/23 00:53 Nucleated RBC % (auto) 0 % 08/11/23 00:53 Nucleated RBCs # 0.0 /100WBC 08/11/23 00:53 Sodium 138 mmol/L (136-145) 08/11/23 00:53 Potassium 3.8 mmol/L (3.5-5.1) 08/11/23 00:53 Chloride 104 mmol/L (98-107) 08/11/23 00:53 Carbon Dioxide 23 mmol/L (22-29) 08/11/23 00:53 Anion Gap 14.8 (5-19) 08/11/23 00:53 BUN 10 mg/dL (6-20) 08/11/23 00:53 Creatinine 0.8 mg/dL (0.5-0.9) 08/11/23 00:53 GFR Calculation 89.7 mL/min (90-130) L 08/11/23 00:53 Glucose 86 mg/dL (65-115) 08/11/23 00:53 Calculated Osmolality 284 mOsm/kg (285-295) L 08/11/23 00:53 Calcium 9.0 mg/dL (8.5-10.5) 08/11/23 00:53 Total Bilirubin 0.2 mg/dL (0.15-1.2) 08/11/23 00:53 AST 17 U/L (0-32) 08/11/23 00:53 ALT 9 U/L (0-33) 08/11/23 00:53 Alkaline Phosphatase 82 U/L (35-105) 08/11/23 00:53 Total Protein 7.0 g/dL (6.6-8.7) 08/11/23 00:53 Albumin 4.2 g/dL (3.5-5.2) 08/11/23 00:53 Globulin 2.8 g/dL (1.3-4.6) 08/11/23 00:53 No radiology studies performed this visit Discharge Plan Discharge Patient Disposition: Home Clinical Impression: Tingling sensation Headache Qualifiers: Headache type: unspecified Headache chronicity pattern: acute headache I ntractability: not intractable Qualified Code(s): R51.9 - Headache, unspecified Condition: Stable Prescriptions: Discontinued hydrocodone-acetaminophen 5-325 mg tablet 1 - 2 tab PO Q5H PRN (Reason: pain) Qty: 30 0RF amoxicillin-pot clavulanate 875-125 mg tablet 1 tab PO BID Qty: 13 0RF No Action prenat.vits,yuliana,zid-yfsa-qkhvf Tablet 1 tab PO DAILY norethindrone (contraceptive) [Kimberly] 0.35 mg tablet 0.35 mg PO DAILY Qty: 28 12RF ferrous sulfate 325 mg (65 mg iron) tablet 325 mg PO DAILY Qty: 30 4RF Discharge Orders: Discharge ED (Routine); Ordered 08/11/23 Ordered By: Ayo Burrell Referrals: Mirta House FNP [Primary Care Provider] - Discharge Diet: Usual diet Discharge Activity: Resume usual activity Patient Instructions: Acute Headache (ED) Activity Restrictions/Additional Instructions: No acute abnormalities were noted on your labs today Please continue to monitor your symptoms closely Follow-up with your doctor, call Sunday with an update of symptoms and to discuss a recheck Return to the emergency department if any rapid worsening symptoms and as needed Stand Alone Forms: Work/School Release Coding Level of Care Code ED Manager Database Administration for Amanuel Montez
[2023-08-11 01:00] LABS: Basophils % 0.3 %; Eosinophils # 0.1 10^3/uL (0.0-0.8); Hematocrit 38.9 % (36-47); Lymphocytes # 3.4 10^3/uL (0.8-4.8); Lymphocytes % 32.5 %; Mean Corpuscular HGB Conc 32.6 g/dL (30-55); Mean Corpuscular Hemoglobin 27.8 pg (27-33); Mean Corpuscular Volume 85.1 fl (85-98); Mean Platelet Volume 9.1 fL (7.4-10.4); Monocytes # 0.7 10^3/uL (0.2-0.9); Monocytes % 7.1 %; Neutrophils # 6.18 10^3/uL (1.8-7.7); Neutrophils % 58.9 %; Nucleated Red Blood Cells % 0 %; Platelet Count 305 10^3/cmm (157-399); Red Blood Count 4.57 10^6/uL (3.85-5.65); White Blood Count 10.49 10^3/uL (3.29-11.43)
[2023-08-11] MEDS: sodium chloride 0.9% 500 ML IV (01:03)
[2023-08-11] MEDS: metoclopramide 5 mg/mL SDV 2 mL 10 MG IVP (01:05)
[2023-08-11] MEDS: ketorolac 30 mg/mL INJ 15 MG IVP (01:07)
[2023-08-11] MEDS: diphenhydrAMINE 50 mg/mL SDV 1mL 12.5 MG IVP (01:08)
[2023-08-11 01:09] VITALS: BP 113/79; PULSE 73; RESP 16
[2023-08-11 01:23] LABS: Alanine Aminotransferase 9 U/L (0-33); Albumin Level 4.2 g/dL (3.5-5.2); Alkaline Phosphatase 82 U/L (35-105); Anion Gap 14.8 (5-19); Aspartate Amino Transferase 17 U/L (0-32); Blood Urea Nitrogen 10 mg/dL (6-20); Carbon Dioxide 23 mmol/L (22-29); Chloride 104 mmol/L (98-107); Globulin 2.8 g/dL (1.3-4.6); Glomerular Filtration Rate 89.7 mL/min (90-130); Glucose 86 mg/dL (65-115); Osmolality Calculated 284 mOsm/kg (285-295); Potassium 3.8 mmol/L (3.5-5.1); Sodium 138 mmol/L (136-145); Total Bilirubin 0.2 mg/dL (0.15-1.2)
[2023-08-11 01:57] VITALS: BP 98/54; PULSE 92; RESP 16; O2SAT 98
== END 2023-08-11 01:57 | disposition home or self-care (01) ==
PROVIDERS: Emergency Provider Nurse Practitioner; PCP Nurse Practitioner Family
DX: R20.2 Paresthesia of skin (principal); R51.9 Headache, unspecified
CPT/HCPCS: 80053; 85025; 96361; 96374; 96375; 99284; J1200; J1885; J2765; J7040

== ENCOUNTER 2024-05-18 17:07 | Outpatient (CLI) | payer OTHER, SELFPAY ==
[2024-05-18 17:25] VITALS: BP 130/84; PULSE 83
[2024-05-18 17:40] VITALS: BP 120/77; PULSE 85; BMI 27.0
== END 2024-05-18 17:55 | disposition home or self-care (01) ==
LOC: OPOB 17:11 → OBGYN 17:12
PROVIDERS: PCP Nurse Practitioner Family; Visit Provider Family Medicine
DX: O26.899 Other specified pregnancy related conditions, unspecified trimester (principal); Z3A.00 Weeks of gestation of pregnancy not specified; R20.0 Anesthesia of skin
CPT/HCPCS: 59025; 99211

== ENCOUNTER 2024-06-03 05:06 | Inpatient (IN) | payer OTHER, MEDICAID, SELFPAY ==
--- NOTE | 2024-05-22 11:19 | ANES.PREANE2 ---
Pre-Anesthetic Assessment Height/Weight: Height 5 ft 1 in Preop Diagnosis: Planned Operation Date: 06/03/24 07:20 Proposed Procedures p Section Repeat 64177: O24.419, Z34.83(Not Applicable) - Perico Camara MD Was Beta Jackeline taken within 24 hours: N/A Was Clonidine taken within 24 hours: N/A Social Tobacco and No alcohol Exam alert, oriented x 3, clear to auscultation bilaterally and regular rate & rhythm Airway Submandibular: within normal limits Cervical ROM: within normal limits Mallampati: Class II Dentition: full Anesthetic Plan ASA status: 2 Anesthesia: Regional (specify below) Other: No prior issues with anesthesia Plan to be n.p.o. at midnight prior to procedure Patient had an emergent during last . Routine scheduled Current smoker Denies any cardiac issues Will obtain labs morning of procedure METs greater than 4 Plan for routine with spinal Medications/Allergies Home Medications Medication Instructions Recorded Confirmed Last Taken Type prenat.vits,yuliana,uvj-gyka-ljajz 1 tab PO DAILY 04/07/20 07/25/22 Unknown History ferrous sulfate 325 mg (65 mg 325 mg PO DAILY #30 tabs 05/18/20 07/25/22 Unknown Rx iron) tablet norethindrone (contraceptive) 0.35 0.35 mg PO DAILY #28 tabs 08/30/20 07/25/22 Unknown Rx mg tablet (Kimberly) Allergies Allergy/AdvReac Type Severity Reaction Status Date / Time clindamycin Allergy Rash Verified 11/16/22 01:26 sulfamethoxazole Allergy Rash Verified 11/16/22 01:26 [From Bactrim] trimethoprim [From Bactrim] Allergy Rash Verified 11/16/22 01:26 [facility] Anesthesia Medical History (Updated 02/01/24 @ 14:48 by Josy Burrell) History of gestational diabetes Had GDM with first . Exercise-induced asthma Surgical History S/P primary low transverse (07/21/20) x 1 Dx: NR FHT. Performed at [facility] in [place], [place]. confirmed LTCS with 2 layer closure. Family History Grandfather Hypertension Maternal Mother Lupus Brother Epilepsy Social History Smoking and tobacco/nicotine status: never used tobacco/nicotine Alcohol intake: never Substance/Drug Use: never Data Anesthesia Cardiac Studies: No Data to Display
[2024-06-03] VITALS (43 sets, daily range): BP systolic 101–127; BP diastolic 56–87; PULSE 76–118; RESP 16–17; TEMP 36.5–36.7; O2SAT 97–98; BMI 27.6
[2024-06-03 05:46] LABS: Basophils % 0.3 %; Eosinophils # 0.1 10^3/uL (0.0-0.8); Eosinophils % 0.9 %; Hematocrit 26.5 % (36-47); Lymphocytes % 19.2 %; Mean Corpuscular HGB Conc 30.2 g/dL (30-55); Mean Corpuscular Hemoglobin 22.2 pg (27-33); Mean Corpuscular Volume 73.4 fl (85-98); Mean Platelet Volume 9.9 fL (7.4-10.4); Monocytes # 0.8 10^3/uL (0.2-0.9); Monocytes % 7.1 %; Neutrophils # 7.63 10^3/uL (1.8-7.7); Nucleated Red Blood Cells % 0 %; Platelet Count 308 10^3/cmm (157-399); Red Blood Count 3.61 10^6/uL (3.85-5.65); Red Cell Distribution Width 15.5 % (12.1-15.1)
[2024-06-03] MEDS: sodium chloride 0.9% 1,000 ML 999 ML IV (05:54)
--- NOTE | 2024-06-03 06:49 | PM.OBGYHP ---
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 History of Present Illness Laura Edwards is a 23 year old 2 para 1-0-0-1 female at 38 weeks estimated gestational age with gestational diabetes presenting for a repeat section Present Details : 2 Para: 1 Labs Rubella: Immune RPR: Negative GBS: Negative Review of Systems General: Reports: 10 or more systems reviewed and unremarkable except in HPI and below Const: Reports: fatigue; Denies: fever(s) Eyes: Denies: change in vision Card: Denies: chest pain Musc: Reports: back pain [place]/Lymph: Denies: easy bruising Medications/Allergies Home Medications Medication Instructions Recorded Confirmed Last Taken Type prenat.vits,yuliana,vca-exdd-flpjs 1 tab PO DAILY 04/07/20 06/03/24 Unknown History ferrous sulfate 325 mg (65 mg 325 mg PO DAILY #30 tabs 05/18/20 06/03/24 Unknown Rx iron) tablet Allergies Allergy/AdvReac Type Severity Reaction Status Date / Time clindamycin Allergy Rash Verified 11/16/22 01:26 sulfamethoxazole Allergy Rash Verified 11/16/22 01:26 [From Bactrim] trimethoprim [From Bactrim] Allergy Rash Verified 11/16/22 01:26 PFSH 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 Exercise-induced asthma Surgical History S/P primary low transverse (07/21/20) x 1 Dx: NR FHT. Performed at [facility] in [place], [place]. confirmed LTCS with 2 layer closure. Family History Grandfather Hypertension Maternal Mother Lupus Brother Epilepsy Social History Smoking and tobacco/nicotine status: never used tobacco/nicotine Alcohol intake: never Substance/Drug Use: never Other Female Reproductive History: Hx Age of Menarche: 12 History History History 2 Term 1 0 Miscarriages/Ectopic 0 Living Children 1 Vitals/I&O/Wt Last Vital Signs Pulse 101 H 06/03/24 05:41 Resp 16 06/03/24 05:38 BP 110/62 06/03/24 05:41 O2 Del Method Room Air 06/03/24 05:30 Weight last 48 hrs Weight 146 lb Weight 146 lb Physical Exam Const: COMMON NORMALS: patient oriented x3 and alert HENMT: COMMON NORMALS: moist oral mucous membranes HEAD & SCALP: normal to inspection Chest: COMMONS NORMALS: normal inspection of the chest Resp: COMMON NORMALS: clear to auscultation bilaterally AUSCULTATION: clear to auscultation bilaterally Cardio: COMMON NORMALS: regular rate and regular rhythm RATE: regular rate RHYTHM: regular rhythm GI: INSPECTION: Yes normal to inspection and Yes other (Gravid) Extremity: COMMON NORMALS: normal to inspection GENERAL: Yes edema (Trace) Neuro: COMMON NORMALS: patient oriented x3, moves all extremities and no sensory deficits noted SENSORIUM/ORIENTATION: Yes alert Psych: COMMON NORMALS: mental status grossly normal Skin: COMMON NORMALS: no rashes or lesions noted GENERAL SKIN EXAM: no rashes or lesions noted Data 06/03/24 05:33 Results Labs OB ([facility]): Blood Type O Positive 06/03/24 Antibody Screen Negative 06/03/24 Hct 26.5 % (36-47) L 06/03/24 Hgb 8.00 g/dL (11.27-16.99) L 06/03/24 Rho(D) Type Rh positive 06/03/24 Plt Count 308 10^3/cmm (157-399) 06/03/24 A&P Assessment and plan (1) History of section: The patient is presenting this morning for a repeat section. Due to her anemia, we are going to have 2 IVs. We will also give her a fluid bolus prior to the . (2) Gestational diabetes, diet controlled: We will monitor blood sugars during her hospital stay. She has had excellent control of her blood sugars throughout her . (3) 38 weeks gestation of : (4) Anemia affecting : Attestations Medical Necessity Statement*: I anticipate routine and post care. Coding Level of Care Code Acute Code for Chg Fwd Diagnoses History of section Z98.891 Gestational diabetes, diet controlled O24.410 38 weeks gestation of Z3A.38 Anemia affecting O99.019
[2024-06-03] MEDS: citric acid-sodium citrate 30 mL UDC PO (06:55)
[2024-06-03] MEDS: ceFAZolin 2,000 mg SDV 2000 MG IVP (06:56)
[2024-06-03] MEDS: famotidine 20 mg/2 mL INJ IVP (06:56)
[2024-06-03] MEDS: metoclopramide 5 mg/mL SDV 2 mL 10 MG IVP (06:56)
[2024-06-03] MEDS: BUPivacaine 0.5% INJ 30 mL INJECTION (08:39)
[2024-06-03] MEDS: tranexamic acid 1,000 MG/100 ML PREMIX 600 MG IV (08:39)
--- NOTE | 2024-06-03 08:54 | P.OP_ITS ---
Operative Report Date of procedure: June 03, 2024 Pre-op diagnosis: 23-year-old 2 para 1-0-0-1 at 38 weeks estimated gestational age with gestational diabetes, diet-controlled, presenting for a repeat section Post-op diagnosis: Status post section Procedure done: Lower transverse section Specimens removed/disposition: Healthy-appearing male With Apgars of 8 and 9 and a weight of 7 pounds 1 ounce Placenta with a three-vessel cord delivered intact Surgeon: Perico Camara MD Estimated blood loss (mL): 800 Complications: none Procedure: The patient was brought back to the operating room where she was prepped and draped in usual sterile fashion. Anesthesia was found to be adequate. A lower transverse skin incision was then made with a #10 blade. I then dissected down to the underlying subcutaneous tissue until arriving at the prerectal fascia. The fascia was then nicked with the scalpel bilaterally. The fascial incisions were then carried laterally with Alston scissors. During the fascial incisions, the patient was noted to be having pain while cutting tissues. Her pain did not appear to be associated with pressure or talking. As result anesthesia augmented her spinal anesthesia with IV medications. Attention was then turned to the superior aspect of the incision which was grasped with kochers and tented up away from the underlying rectus abdominis muscles. The muscles were then dissected away from the fascia manually, and later with Alston scissors. Attention was then turned to the inferior aspect of the incision, and the fascia was dissected away from the underlying muscle in similar fashion. The rectus abdominis muscles were then spread manually. The peritoneum was entered manual ly. Excellent visualization of the uterus was noted. A lower transverse uterine incision was then made with a #10 blade. Upon arriving at the intrauterine cavity, the uterine incision was then extended manually. The was noted to be in vertex position. The baby was delivered without difficulty. After delivery of the head, the mouth and nose were suctioned at the site of the incision. There was no meconium. There was no nuchal cord. The baby was then completely delivered and placed on the abdomen. The cord was cut and clamped. The baby was then handed to the waiting nurse. The placenta was removed intact. The uterus was externalized. The intrauterine cavity was cleansed of any remaining debris. The uterine incision was reapproximated in 2 layers. The first layer was per formed with 0 Vicryl in a running locked stitch. The second layer was an imbricating stitch also using 0 Vicryl. The uterus was replaced into the abdomen. The peritoneum was then irrigated with warm saline. I reexamined the uterine incision and found it to be hemostatic. The rectus abdominis muscles were then reapproximated using 0 Vicryl in a running stitch. The fascia was then reapproximated using 0 Vicryl in running stitch. The subcutaneous tissue was also reapproximated using 0 Vicryl in a running stitch. The skin was reapproximated using esme. A sterile dressing was placed. All counts were correct x2. Both the mother and baby were in stable condition.
--- NOTE | 2024-06-03 09:10 | ANE.PACU2 ---
Inpatient post-anesthesia follow up: Airway intact: Yes Vital signs: Temperature 98 F Pulse Rate 111 Respiratory Rate 17 Blood Pressure 102/58 Pulse Oximetry 98 Oxygen Delivery Me thod Room Air Oxygen Flow Rate Fraction of Inspir ed Oxygen Hydration adequate: Yes Nausea and vomiting: No Pain level: 1 Mental status: Baseline
[2024-06-03] MEDS: ketorolac 30 mg/mL INJ IVP ×3 (10:09→21:35)
[2024-06-03] MEDS: HYDROcodone-acetaminophen 5-325 mg Tablet PO (10:10)
[2024-06-03 12:11] LABS: Hematocrit 23.1 % (36-47); Mean Corpuscular HGB Conc 29.9 g/dL (30-55); Mean Corpuscular Hemoglobin 22.3 pg (27-33); Mean Corpuscular Volume 74.8 fl (85-98); Mean Platelet Volume 9.7 fL (7.4-10.4); Platelet Count 247 10^3/cmm (157-399); Red Blood Count 3.09 10^6/uL (3.85-5.65); Red Cell Distribution Width 15.8 % (12.1-15.1); White Blood Count 19.42 10^3/uL (3.29-11.43)
[2024-06-03 18:00] LABS: Glucose Point of Care 95 mg/dL (70-110)
[2024-06-03 18:57] LABS: Hematocrit 23.3 % (36-47); Mean Corpuscular Hemoglobin 22.2 pg (27-33); Mean Platelet Volume 9.7 fL (7.4-10.4); Platelet Count 240 10^3/cmm (157-399); Red Blood Count 3.15 10^6/uL (3.85-5.65); Red Cell Distribution Width 15.8 % (12.1-15.1); White Blood Count 13.62 10^3/uL (3.29-11.43)
[2024-06-03] MEDS: ferrous sulfate EC 325 mg Tablet PO (21:33)
[2024-06-03] MEDS: docusate sodium 100 mg Capsule PO (21:33)
[2024-06-04] MEDS: ketorolac 30 mg/mL INJ IVP (03:41)
[2024-06-04 03:51] VITALS: BP 120/71; PULSE 90
[2024-06-04 09:50] LABS: Glucose Point of Care 76 mg/dL (70-110)
[2024-06-04] MEDS: ferrous sulfate EC 325 mg Tablet PO (10:00)
[2024-06-04] MEDS: PRENATAL VIT NO.130/IRON/FOLIC 1 EACH TABLET PO (10:00)
[2024-06-04] MEDS: ibuprofen 800 mg tablet PO ×2 (10:00→15:12)
[2024-06-04] MEDS: docusate sodium 100 mg Capsule PO (10:00)
--- NOTE | 2024-06-04 11:51 | P.DS_ITS ---
Discharge Providers MARINE RIGGER Date of Admission: 06/03/24 05:06 Date of Discharge: 06/04/24 Attending Provider at Admission: Perico Camara MD Attending Provider at Discharge: Perico Camara MD Primary Care Provider: Mirta House Diagnoses at Discharge Discharge Diagnosis (1) History of section: Status: Acute (2) Gestational diabetes, diet controlled: Status: Acute (3) 38 weeks gestation of : Status: Acute (4) Anemia affecting : Status: Acute Reason for Visit Reason for Visit: C Section Hospital Course Hospital Course The patient presented to the hospital for a repeat section. Her C- section was unremarkable. Her course is also unremarkable. Her bleeding has been within normal limits. She has been breast-feeding well. Her pain has been well-controlled. There have been no concerns. Information Peripartum Data: Infant Delivery Method: Physical Exam Narrative: The patient is alert and oriented in no acute distress Lungs are clear to auscultation bilaterally Heart has a regular rate and rhythm no murmurs Abdomen is nondistended nontender Fundus is below the umbilicus Her dressing is clean dry and intact Her extremities have trace edema. Urinary Catheter Management: Gross: Cath Placed During This Visit: yes, but has since been removed by the nurse Reason for Continuing Indwelling Catheter: Decision to DC Catheter Urinary Catheter Date of Insertion: 06/03/24 Urinary Catheter Time of Insertion: 07:09 Date Urinary Catheter Removed: 06/04/24 Time Urinary Catheter Discontinued: 00:20 History History History 2 Term 1 0 Miscarriages/Ectopic 0 Living Children 1 Discharge Data Studies Completed and Pending Laboratory Results WBC 13.62 10^3/uL (3.29-11.43) H 06/03/24 18:52 RBC 3.15 10^6/uL (3.85-5.65) L 06/03/24 18:52 Hgb 7.00 g/dL (11.27-16.99) L 06/03/24 18:52 Hct 23.3 % (36-47) L 06/03/24 18:52 MCV 74.0 fl (85-98) L 06/03/24 18:52 MCH 22.2 pg (27-33) L 06/03/24 18:52 MCHC 30.0 g/dL (30-55) 06/03/24 18:52 RDW 15.8 % (12.1-15.1) H 06/03/24 18:52 Plt Count 240 10^3/cmm (157-399) 06/03/24 18:52 MPV 9.7 fL (7.4-10.4) 06/03/24 18:52 Neut % (Auto) 72.0 % 06/03/24 05:33 Lymph % (Auto) 19.2 % 06/03/24 05:33 [place] % (Auto) 7.1 % 06/03/24 05:33 Eos % (Auto) 0.9 % 06/03/24 05:33 Baso % (Auto) 0.3 % 06/03/24 05:33 Neut # (Auto) 7.63 10^3/uL (1.8-7.7) 06/03/24 05:33 Lymph # (Auto) 2.0 10^3/uL (0.8-4.8) 06/03/24 05:33 [place] # (Auto) 0.8 10^3/uL (0.2-0.9) 06/03/24 05:33 Eos # (Auto) 0.1 10^3/uL (0.0-0.8) 06/03/24 05:33 Baso # (Auto) 0.0 10^3/uL (0.0-0.1) 06/03/24 05:33 Nucleated RBC % (auto) 0 % 06/03/24 05:33 Nucleated RBCs # 0.0 /100WBC 06/03/24 05:33 POC Glucose 76 mg/dL (70-110) 06/03/24 21:31 Blood Type O Positive 06/03/24 05:33 Rho(D) Type Rh positive 06/03/24 05:33 Antibody Screen Negative 06/03/24 05:33 Vitals Last Vital Signs Temp 97.7 F 06/03/24 14:50 Pulse 90 06/04/24 03:51 Resp 17 06/03/24 08:45 BP 120/71 06/04/24 03:51 Pulse Ox 98 06/03/24 08:45 O2 Del Method Room Air 06/03/24 08:45 Results Labs OB ([facility]): Blood Type O Positive 06/03/24 Antibody Screen Negative 06/03/24 Hct 23.3 % (36-47) L 06/03/24 Hgb 7.00 g/dL (11.27-16.99) L 06/03/24 Rho(D) Type Rh positive 06/03/24 Plt Count 240 10^3/cmm (157-399) 06/03/24 Discharge Plan Discharge Patient Disposition: Home Condition: Stable Prescriptions: New ibuprofen 800 mg Tablet 800 mg PO TID Qty: 45 0RF hydrocodone-acetaminophen 5-325 mg Tablet 1 tab PO Q6H PRN (Reason: Moderate To Severe Pain) Qty: 28 0RF Continued prenat.vits,yuliana,[id number] Tablet 1 tab PO DAILY ferrous sulfate 325 mg (65 mg iron) tablet 325 mg PO DAILY Qty: 30 4RF Discontinued aspirin 81 mg Tablet 81 mg PO DAILY Discharge Orders: Discharge Order (Routine); Ordered 06/04/24 Ordered By: Perico Camara Referrals: Perico Camara MD [Physician] - 4-7 days (Coordinate with baby appt) Discharge Diet: Usual diet Discharge Activity: Limit activity as instructed Patient Instructions: Depression (DC), Bleeding (DC), Preeclampsia and Eclampsia After Delivery (GEN), Hemorrhage (DC), OB - Hoa/Tara, OB Discharge Report, OB Food/Drug Interaction Guide, OB Care at Home, Opioid Safety, Abnormal Bleeding Discharge Attestations MARINE RIGGER Time Spent in Discharge Care*: less than 30 min Coding Level of Care Code Acute Code for Chg Fwd Diagnoses History of section Z98.891 Gestational diabetes, diet controlled O24.410 38 weeks gestation of Z3A.38 Anemia affecting O99.019
[2024-06-04 15:18] VITALS: BP 127/77; PULSE 105
[2024-06-04 15:30] VITALS: BP 127/77; PULSE 105; RESP 15; TEMP 36.9; O2SAT 98
== END 2024-06-04 15:45 | disposition home or self-care (01) | DRG 788 ==
PROVIDERS: Admitting Provider Family Medicine; PCP Nurse Practitioner Family; Visit Provider Family Medicine
PROC: 10D00Z1 Extraction of Products of Conception, Low, Open Approach (ICD-10-PCS; CPT 59514; principal; 2024-06-03 07:00)
DX: O34.211 Maternal care for low transverse scar from previous cesarean delivery (principal); N85.8 Other specified noninflammatory disorders of uterus; O24.420 Gestational diabetes mellitus in childbirth, diet controlled; O99.02 Anemia complicating childbirth; D64.9 Anemia, unspecified; Z3A.38 38 weeks gestation of pregnancy; Z37.0 Single live birth
CPT/HCPCS: 36415; 36416; 51702; 59025; 59409; 82962; 85025; 85027; 86850; 86900; 96374; 96376; J0690; J1885; J2250; J2274; J2704; J2765; J3010; J3490; J7030

== ENCOUNTER 2024-06-09 03:41 | Emergency (ER) | payer MEDICAID, SELFPAY ==
[2024-06-09 03:50] VITALS: BP 147/62; PULSE 89; RESP 16; TEMP 36.9; O2SAT 98; BMI 25.3
--- NOTE | 2024-06-09 04:40 | W.ED.URI ---
HPI - URI/Sore Throat General: Chief Complaint: Upper Respiratory Infection Stated Complaint: Fever\Cough Time Seen by Provider: 06/09/24 04:28 History of Present Illness: 23-year-old female who is day 6. She presents with fever, headache, congestion, sore throat and a mild cough. She has headaches and chills as well. Her mother tested positive for flu evidently. The patient has had a less than 2 days of symptoms. No increased abdominal pain, increased vaginal bleeding, etc. . Related Data Home Medications Medication Instructions Recorded Confirmed prenat.vits,yuliana,[id number] 1 tab PO DAILY 04/07/20 06/03/24 Previous Rx's Medication Instructions Recorded ferrous sulfate 325 mg (65 mg 325 mg PO DAILY #30 tabs 05/18/20 iron) tablet hydrocodone 5 mg-acetaminophen 325 1 tab PO Q6H PRN Moderate To 06/04/24 mg tablet Severe Pain #28 tabs ibuprofen 800 mg tablet 800 mg PO TID #45 tabs 06/04/24 oseltamivir 75 mg capsule (Tamiflu) 75 mg PO BID 5 days #10 caps 06/09/24 Allergies Allergy/AdvReac Type Severity Reaction Status Date / Time clindamycin Allergy Rash Verified 11/16/22 01:26 sulfamethoxazole Allergy Rash Verified 11/16/22 01:26 [From Bactrim] trimethoprim [From Bactrim] Allergy Rash Verified 11/16/22 01:26 PFS ED PFSH: Medical History History of gestational diabetes Had GDM with first . Exercise-induced asthma Surgical History S/P primary low transverse (07/21/20) x 1 Dx: NR FHT. Performed at [facility] in [place], [place]. confirmed LTCS with 2 layer closure. Family History Grandfather Hypertension Maternal Mother Lupus Brother Epilepsy Social History Smoking and tobacco/nicotine status: never used tobacco/nicotine Alcohol intake: never Substance/Drug Use: never Female Reproductive History: Date of last menstrual period: 06/03/24 Physical Exam Const: COMMON NORMALS: no acute distress GENERAL APPEARANCE: cooperative; not ill appearing and not frail appearing HENMT: COMMON NORMALS: normocephalic, atraumatic, Normal external nose present and Normal nasal mucous membranes and turbinates present HEAD & SCALP: normocephalic and atraumatic FACE & SINUS: normal facial exam and face symmetric NOSE: Normal external nose present and Normal nasal mucous membranes and turbinates present THROAT: posterior oropharynx abnormal erythema; no edema and no exudates Eye: COMMON NORMALS: Equal, round and reactive pupils present and EOMs intact bilaterally PUPIL: Yes Equal, round and reactive pupils present Neck/C-Spine: GENERAL: Yes trachea midline Chest: CHEST: Yes Symmetrical chest wall rise Resp: COMMON NORMALS: normal respiratory effort, No retractions, No use of accessory muscles and clear to auscultation bilaterally AUSCULTATION: clear to auscultation bilaterally Cardio: COMMON NORMALS: regular rate and regular rhythm RATE: regular rate RHYTHM: regular rhythm GI: COMMON NORMALS: Normal to inspection, nondistended, normoactive bowel sounds present Extremity: COMMON NORMALS: no pedal edema Neuro: WILLIAM COMA SCALE: document GCS findings [place] coma scale eye opening: Spontaneous [place] coma scale verbal response: Orientated William coma scale motor response: Obey commands William coma scale total score: 15 SENSORY EXAM: Yes extremities (intact) Psych: COMMON NORMALS: speech normal SPEECH: Yes normal speech Skin: COMMON NORMALS: no rashes or lesions noted GENERAL SKIN EXAM: no rashes or lesions noted Course Vital Signs: Vital signs: Vital Signs Temperature 98.5 F 06/09/24 03:50 Pulse Rate 89 06/09/24 03:50 Respiratory Rate 16 06/09/24 03:50 Blood Pressure 147/62 06/09/24 03:50 Pulse Oximetry 98 06/09/24 03:50 Oxygen Delivery Me thod Room Air 06/09/24 03:50 MDM - URI/Sore Throat Medical Decision Making Vitals are normal here. Swab PCR for flu COVID and RSV are negative, although the patient did have a sick contact in her mother who is flu positive. Will go ahead and treat with Tamiflu, as this patient is a new mother. Lab Data Laboratory Results Coronavirus (PCR) Negative (Negative) 06/09/24 03:57 Influenza A (PCR) Negative (Negative) 06/09/24 03:57 Influenza Type B (PCR) Negative (Negative) 06/09/24 03:57 RSV (PCR) Negative (Negative) 06/09/24 03:57 No radiology studies performed this visit Discharge Plan Discharge Patient Disposition: Home Clinical Impression: Viral infection, Upper respiratory infection Condition: Stable Prescriptions: New oseltamivir [Tamiflu] 75 mg capsule 75 mg PO BID 5 Days Qty: 10 0RF No Action prenat.vits,yuliana,[id number] Tablet 1 tab PO DAILY ferrous sulfate 325 mg (65 mg iron) tablet 325 mg PO DAILY Qty: 30 4RF ibuprofen 800 mg Tablet 800 mg PO TID Qty: 45 0RF hydrocodone-acetaminophen 5-325 mg Tablet 1 tab PO Q6H PRN (Reason: Moderate To Severe Pain) Qty: 28 0RF Discharge Orders: Discharge ED (Routine); Ordered 06/09/24 Ordered By: Vincent Jcakson Referrals: Mirta House FNP [Primary Care Provider] - 1-3 days Patient Instructions: Upper Respiratory Infection (ED), Opioid Safety, Pain Management Activity Restrictions/Additional Instructions: Drink plenty of clear liquids. Alternate Tylenol and ibuprofen up to every 3 hours for fevers. Salt water gargles may help throat irritation and soreness. Antivirals as directed. You swab negative for influenza, but given your sick contact, and the fact that you are a new mother, we will go ahead and elect to treat. Call your doctor later this morning for a follow-up appointment. Coding Level of Care Code ED Pipelines Supervisor for Amanuel Montez
[2024-06-09 04:42] LABS: Covid PCR NEGATIVE (Negative); Influenza A NEGATIVE (Negative); Influenza B NEGATIVE (Negative); Respiratory Syncytial Virus Ce NEGATIVE (Negative)
[2024-06-09 04:56] VITALS: BP 138/65; PULSE 82
== END 2024-06-09 07:19 | disposition home or self-care (01) ==
PROVIDERS: Emergency Provider Emergency Medicine; PCP Nurse Practitioner Family
DX: B34.9 Viral infection, unspecified (principal); J06.9 Acute upper respiratory infection, unspecified; Z11.52 Encounter for screening for COVID-19
CPT/HCPCS: 87637; 99283